=== PATIENT | female | born 1995 | race African-American/Black ===

== ENCOUNTER 2020-02-01 16:06 | Emergency (ER) | payer SELFPAY ==
[~2020-02-01] VITALS: Ht 167.6 cm; Wt 59.0 kg
[2020-02-01 16:12] VITALS: Ht 167.6 cm; Wt 59.0 kg
[2020-02-01 17:10] LABS: BASOPHIL % 0.3 % (0-2); PLATELET COUNT 232 x10^3mcL (130-400); RED CELL DISTRIBUTION WIDTH 13.6 % (11.5-14.5)
[2020-02-01 17:18] LABS: CALCIUM 8.7 mg/dL (8.5-10.1); CHLORIDE SERUM 109 mmol/L (98-107); CREATININE SERUM 0.8 mg/dL (0.6-1.0); GFR1 > 60 mL/min; GLUCOSE SERUM 111 mg/dL (74-106); POTASSIUM SERUM 3.6 mmol/L (3.5-5.1); SODIUM SERUM 142 mmol/L (136-145)
[2020-02-01 17:31] LABS: ALBUMIN 3.6 g/dL (3.4-5.0); ALKALINE PHOSPHATASE 68 U/L (46-116); ALT/SGPT 24 U/L (14-59); AST/SGOT 19 U/L (15-37); BILIRUBIN TOTAL 0.16 mg/dL (0.20-1.00); CHOLESTEROL 148 mg/dL (<200)
[2020-02-01 17:39] LABS: AMPHETAMINE QUAL UR NONE DETECTED (See below)
[2020-02-02 07:35] VITALS: BP 96/52
== END 2020-02-02 07:35 | disposition home or self-care (01) ==
LOC: ED 16:06
PROVIDERS: Emergency Medicine
DX: G93.40 Encephalopathy, unspecified (principal)
CPT/HCPCS: 82962; G0480; J1200; J1630; J2060